=== PATIENT | male | born 1995 | race Caucasian/White ===

== ENCOUNTER 2019-02-09 10:28 | Emergency (ER) | payer BC ==
[~2019-02-09] VITALS: Ht 177.8 cm; Wt 59.1 kg
[2019-02-09] MEDS ORDERED: ondansetron/PF 4mg/2ml inj IV ONE (10:40)
[2019-02-09] MEDS ORDERED: morphine 4 MG/ML inj SYRINge IV PRN (10:40)
[2019-02-09] MEDS ORDERED: ketorolac trometh. 30mg/ml inj. IV ONE (10:40)
[2019-02-09] MEDS ORDERED: normal saline 1000ML IV soln IVB ONE (10:40)
[2019-02-09 11:08] LABS: BASOPHILS % (AUTO) 0.4 % (0-1); EOSINOPHILS % (AUTO) 0.3 % (0-6); HEMATOCRIT 43.2 % (42.0-52.0); HEMOGLOBIN 15.3 g/dl (14.0-17.9); LYMPHOCYTES # (AUTO) 2.5 X10'3 (1.1-4.8); LYMPHOCYTES % (AUTO) 35.2 % (21-51); MEAN CORPUSCULAR HEMOGLOBIN 32.8 PG (27.0-31.0); MEAN CORPUSCULAR HGB CONC 35.4 g/dL (33.0-36.5); MEAN CORPUSCULAR VOLUME 92.5 FL (78-98); MEAN PLATELET VOLUME 7.3 FL (7.4-10.4); MONOCYTES # (AUTO) 0.4 X10'3 (0-0.9); MONOCYTES % (AUTO) 6.3 % (2-12); NEUTROPHILS # (AUTO) 4.1 X10'3 (1.8-7.7); NEUTROPHILS % (AUTO) 57.8 % (42-75); PLATELET COUNT 254 X10'3 (140-440); RED BLOOD COUNT 4.67 X10'6 (4.70-6.10); RED CELL DISTRIBUTION WIDTH 12.8 % (11.5-14.5); WHITE BLOOD COUNT 7.2 X10'3 (4.5-11.0)
[2019-02-09 11:26] LABS: ALANINE AMINOTRANSFERASE 18 U/L (12-78); ALBUMIN 4.8 G/DL (3.4-5.0); ALBUMIN/GLOBULIN RATIO 1.5 (1.1-1.5); ALKALINE PHOSPHATASE 57 IU/L (46-116); ANION GAP 14 (8-16); ASPARTATE AMINO TRANSFERASE 13 U/L (10-37); BILIRUBIN,TOTAL 0.8 MG/DL (0.1-1.0); BLOOD UREA NITROGEN 7 MG/DL (7-18); BUN/CREATININE RATIO 7.1 (5.4-32.0); CALCIUM 9.4 MG/DL (8.5-10.1); CHLORIDE 104 MMOL/L (99-107); CREATININE 0.98 MG/DL (0.60-1.10); GLUCOSE 125 MG/DL (70-104); POTASSIUM 3.1 MMOL/L (3.5-5.1); SODIUM 141 MMOL/L (135-145); TOTAL CARBON DIOXIDE 23.5 MMOL/L (24-32); TOTAL PROTEIN 7.9 G/DL (6.4-8.2); eGFR > 90 ML/MIN
[2019-02-09] MEDS ORDERED: CefTRIAXone inj 250 MG in normal saline 50ml IV soln 50 ML IV ONE (12:00)
[2019-02-09] MEDS ORDERED: DOXY100C43 PO (12:02)
[2019-02-09] MEDS ORDERED: NAPR-56 PO (12:02)
[2019-02-09] MEDS ORDERED: CefTRIAXone 250MG IM Kit w/LIDOcaine IM ONE (12:20)
[2019-02-09 12:45] VITALS: BP 135/69
== END 2019-02-09 12:50 | disposition home or self-care (01) ==
LOC: ER 10:29
DX: N45.1 Epididymitis (principal); Z90.89 Acquired absence of other organs; Z88.0 Allergy status to penicillin; Z79.899 Other long term (current) drug therapy
CPT/HCPCS: 36415; 76870; 80053; 85025; 96372; 96374; 96375; 99284; J0696; J1885; J2270; J2405; J7030

== ENCOUNTER 2020-12-29 12:39 | Emergency (ER) | payer SELFPAY ==
[~2020-12-29] VITALS: Ht 177.8 cm; Wt 63.6 kg
[2020-12-29 13:20] VITALS: BP 127/61
== END 2020-12-29 18:32 | disposition left against medical advice (07) ==
LOC: ER 12:40
DX: R11.10 Vomiting, unspecified (principal); R10.9 Unspecified abdominal pain; Z53.21 Procedure and treatment not carried out due to patient leaving prior to being seen by health care provider